=== PATIENT | male | born 1945 | race Caucasian/White ===

== ENCOUNTER 2021-08-08 10:35 | Inpatient (IN) | payer OTHER, MEDICARE, SELFPAY ==
[2021-08-08] VITALS (8 sets, daily range): BP systolic 124–155; BP diastolic 71–84; PULSE 63–81; RESP 19–29; TEMP 37.6; O2SAT 88–96; BMI 21.5
--- NOTE | 2021-08-08 11:04 | XR_ITS ---
WS: [id number] XR chest 1V portable [id number] REASON FOR EXAM: dyspnea FINDINGS: Mild tortuosity the thoracic aorta. Normal heart size. Confluent reticular opacities in the left lung base adjacent to the diaphragm. Diffuse reticular and groundglass opacities in the right lower lung field and the periphery of the ri ght midlung field. XR/XR chest 1V portable [id number] IMPRESSION: Bilateral pulmonary opacities unknown chronicity but very likely representing s ubacute pneumonitis.
--- NOTE | 2021-08-08 11:04 | ECG_ITS ---
[facility] Test Date: 2021-08-08 Pat Name: Conor Cullen Department: Room: Gender: Male Technical Buyer: : 1945 Requested By: Celestino Gomez Order Number: [id number] Nathan MD: Jennifer Soto M.D. Measurements Intervals [place] Rate: 68 P: 58 AK: 136 QRS: 66 QRSD: 94 T: 63 QT: 422 QTc: 450 Interpretive Statements SINUS RHYTHM No previous ECG available for comparison Electronically Signed On 08-08-2021 17:08:25 FABRIC SOURCER by Jennifer Soto M.D. [id number]
--- NOTE | 2021-08-08 11:11 | CT_ITS ---
WS: [id number] CTA OF THE CHEST WITH PULMONARY EMBOLISM PROTOCOL TECHNIQUE: High-resolution contrast enhanced CTA of the chest with coronal and sagittal reformatted i mages with pulmonary embolism protocol. MIP images are also reviewed. CLINICAL INFORMATION: dyspnea COMPARISON: None. DLP: 525.[address] scans at [facility] use at least one of these dose optimization techniques: automated e xposure control; mA and/or kV adjustment per patient size (includes targeted exams where dose is matc hed to clinical indication); or iterative reconstruction. FINDINGS: Proximal main pulmonary arteries are normal. Prominent main pulmonary arteries can be seen with pulmo nary arterial hypertension. Focal filling defect in the right lower lobe pulmonary arteries compatibl e with acute pulmonary embolus. Advanced chronic emphysematous changes. Chronic appearing interstitial thickening with subpleural fib rosis in the bilateral upper and lower lobes. Airspace infiltrates in both lower lobes. Recommend cor relation for pneumonia. Normal caliber thoracic aorta. Reactive anterior mediastinal and peribronchia l lymph nodes. Perihilar bronchovascular thickening. No axillary lymphadenopathy. Partially visualize d adrenal glands are normal. Normal GE junction. CT/CT angio chest PE protcl [id number] IMPRESSION: 1. Filling defect in the right lower lobe pulmonary arteries compatible with a cute pulmonary embolus. 2. Advanced chronic emphysematous changes with chronic appearing interstitial thickening and subpleural fibrosis 3. Superimposed airspace infiltrates in the mid lungs and bilateral lower lobe s compatible with pneumonia. Recommend correlation for COVID 19 pneumonia Notified Celestino Dailey DO at 08/08/2021 12:53 PM.
--- NOTE | 2021-08-08 11:13 | W.ED.COVID ---
HPI - COVID General: Chief Complaint: ER Hold Stated Complaint: O2 Below 90, having alot of respitory issues Time Seen by Provider: 08/08/21 10:53 Triage information: Has fever, cough or shortness of breath. History of Present Illness: 76-year-old male comes in complaining of cough and congestion for last 2 weeks. Unfortunately his yesterday at another facility secondary to Covid. He has had a low-grade fever he denies diarrhea or anosmia. He is not had a productive cough. He denies any chest pain. MD complaint: has COVID symptoms Prior covid testing: no COVID 19 common symptoms: positive fever(s), chills, cough, non-productive cough, dyspnea, body aches and headache(s); negative throat pain, nasal congestion, nausea, vomiting or diarrhea COVID 19 other sytmptoms: negative chest pain Onset (ago): week(s) (1-2) Severity: severe Treatment prior to arrival: none COVID Results: SARS-CoV-2 (PCR) Detected (NOT DETECT) A 08/08/21 11:01 08/08/21 Coronavirus Type 229E (PCR) Not detected (NOT DETECT) 08/08/21 11:01 08/08/21 Review of Systems Const: Reports: fever(s), chills and body aches ENMT: Denies: throat pain, ear or mastoid pain, nasal discharge or nasal congestion Card: Denies: chest pain, edema, dyspnea on exertion or orthopnea Resp: Reports: dyspnea and non-productive cough GI: Denies: abdominal pain, nausea, vomiting, hematemesis, coffee ground emesis, diarrhea, constipation, bloating, hematochezia or melena : Denies: flank pain, dysuria, urinary frequency or urinary urgency Skin/Breast: Denies: rash or pruritus Neuro: Reports: headache(s) PFSH ED PFSH: Medical History Former smoker Hypertension Surgical History 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 Family History Denies family history of CAD (coronary artery disease) Social History Smoking and tobacco status: former smoker Alcohol intake: never Substance/Drug Use: never Lives independently: Yes Marital status: / Marital status details: 08/07/2021 service: Yes Physical Exam Const: COMMON NORMALS: no acute distress GENERAL APPEARANCE: cooperative and comfortable ORIENTATION/CONSCIOUSNESS: Yes awake, Yes oriented to person, Yes oriented to place and Yes oriented to time HENMT: COMMON NORMALS: normocephalic, atraumatic and hearing grossly normal bilaterally HEAD & SCALP: normocephalic and atraumatic Neck/C-Spine: COMMON NORMALS: no JVD Resp: AUSCULTATION: crackles and wheezes Cardio: COMMON NORMALS: no JVD, regular rate, regular rhythm and No murmurs present (Cardio) RATE: regular rate RHYTHM: regular rhythm GI: COMMON NORMALS: Soft to palpation and No hepatosplenomegaly present AUSCULTATION: Yes normoactive bowel sounds PALPATION: Yes Soft to palpation, No Tenderness to palpation present (GI), No Guarding due to palpation present (GI) and Yes No hepatosplenomegaly present Extremity: COMMON NORMALS: normal to inspection, capillary refill normal, no clubbing, cyanosis or edema, no calf tenderness and no pedal edema Neuro: SENSORIUM/ORIENTATION: Yes oriented to person, Yes oriented to place and Yes oriented to time Skin: COMMON NORMALS: no rashes or lesions noted GENERAL SKIN EXAM: no rashes or lesions noted Course Vital Signs: Vital signs: Vital Signs Temperature 99.3 F 08/10/21 04:00 Pulse Rate 66 08/10/21 04:00 Respiratory Rate 20 H 08/10/21 04:00 Blood Pressure 168/84 08/10/21 04:00 Pulse Oximetry 90 08/10/21 04:00 MDM - COVID Medical Decision Making Patient tested positive for Covid is hypoxic and needs oxygen supplementation. Given his overall health recommend that he be hospitalized. He is rather late in the process and he does have a right lower lobe PE. Patient given Lovenox here discussed with hospitalist orders written Medical Records I reviewed the patient's medical records. Lab Data I reviewed the patient's lab results. : 08/10/21 04:50 08/09/21 05:43 Radiology Impressions Chest X-Ray 08/08/21 11:04 IMPRESSION: Bilateral pulmonary opacities unknown chronicity but very likely representing subacute pneumonitis. Chest CTA 08/08/21 11:11 IMPRESSION: 1. Filling defect in the right lower lobe pulmonary arteries compatible with acute pulmonary embolus. 2. Advanced chronic emphysematous changes with chronic appearing interstitial thickening and subpleural fibrosis 3. Superimposed airspace infiltrates in the mid lungs and bilateral lower lobes compatible with pneumonia. Recommend correlation for COVID 19 pneumonia Notified Celestino Dailey DO at 08/08/2021 12:53 PM. Foot X-Ray 08/08/21 15:33 IMPRESSION: 1. Negative for fracture or dislocation. 2. Small calcified plantar calcaneal heel spur. 3. Os trigonum, a normal variant. Laboratory Results WBC 13.4 10^3/uL (4.0-10.0) H 08/08/21 11:01 RBC 4.53 10^6/uL (4.1-5.3) 08/08/21 11:01 Hgb 14.0 g/dL (11.7-16.6) 08/08/21 11:01 Hct 42.0 % (42.0-52.0) 08/08/21 11:01 MCV 92.7 fl (80-94) 08/08/21 11:01 MCH 30.9 pg (28.0-34.0) 08/08/21 11:01 MCHC 33.3 g/dL (30.0-36.0) 08/08/21 11:01 RDW 13.2 % (12.1-15.1) 08/08/21 11:01 Plt Count 324 10^3/cmm (130-400) 08/08/21 11:01 MPV 9.7 fL (7.4-10.4) 08/08/21 11:01 Neut % (Auto) 87.3 % 08/08/21 11:01 Lymph % (Auto) 3.9 % 08/08/21 11:01 [place] % (Auto) 7.8 % 08/08/21 11:01 Eos % (Auto) 0.1 % 08/08/21 11:01 Baso % (Auto) 0.2 % 08/08/21 11:01 Neut # (Auto) 11.71 10^3/uL (1.8-7.7) H 08/08/21 11:01 Lymph # (Auto) 0.5 10^3/uL (0.8-4.8) L 08/08/21 11:01 [place] # (Auto) 1.0 10^3/uL (0.2-0.9) H 08/08/21 11:01 Eos # (Auto) 0.0 10^3/uL (0.0-0.8) 08/08/21 11:01 Baso # (Auto) 0.0 10^3/uL (0.0-0.1) 08/08/21 11:01 Nucleated RBC % (auto) 0 % 08/08/21 11:01 Nucleated RBCs # 0.0 /100WBC 08/08/21 11:01 PT 14.80 SECONDS (12.1-14.9) 08/08/21 11:01 INR 1.13 (0.8-1.2) 08/08/21 11:01 APTT 28.9 SECONDS (23.9-36.7) 08/08/21 11:01 Fibrinogen 517 mg/dL (174-498) H 08/08/21 11:01 D-Dimer 8.77 ug/mIFEU (0-0.59) H 08/08/21 11:01 Specimen Type Arterial 08/08/21 11:18 Sample Site Radial, right 08/08/21 11:18 ABG pH 7.50 (7.35-7.45) H 08/08/21 11:18 ABG pCO2 34.6 mmHg (35-45) L 08/08/21 11:18 ABG pO2 80.0 mmHg (80.0-100.0) 08/08/21 11:18 ABG HCO3 26.8 mmol/L (22-26) H 08/08/21 11:18 ABG O2 Saturation 96.6 08/08/21 11:18 ABG Base Excess 3.8 mmol/L (-2.0-2.0) H 08/08/21 11:18 Clint Test Pos 08/08/21 11:18 A-a O2 Gradient 24.6 mmHg (5-10) H 08/08/21 11:18 Hematocrit 40.8 % (42-52) L 08/08/21 11:18 Hgb O2 Saturation 95.0 % (95-100) 08/08/21 11:18 Carboxyhemoglobin 0.9 %THgb (0.4-20.1) 08/08/21 11:18 Methemoglobin 0.9 % (0.4-1.5) 08/08/21 11:18 Total Hemoglobin 13.3 g/dL (14-18) L 08/08/21 11:18 Sodium 139.0 mmol/L (131-143) 08/08/21 11:18 Potassium 3.4 mmol/L (3.5-5.0) L 08/08/21 11:18 Glucose 119.0 mg/dL (70-115) H 08/08/21 11:18 Ionized Calcium 1.1 mmol/L (1.1-1.4) 08/08/21 11:18 O2 Delivery Device Nc 08/08/21 11:18 O2 Liters/Min 6.0 % 08/08/21 11:18 FiO2 44.0 % 08/08/21 11:18 Resource Protection Specialist ID [email or web address] 08/08/21 11:18 Sodium 137 mmol/L (136-145) 08/08/21 11:01 Potassium 3.6 mmol/L (3.5-5.1) 08/08/21 11:01 Chloride 105 mmol/L (98-107) 08/08/21 11:01 Carbon Dioxide 21 mmol/L (22-29) L 08/08/21 11:01 Anion Gap 14.6 (5-19) 08/08/21 11:01 BUN 16 mg/dL (8-23) 08/08/21 11:01 Creatinine 0.7 mg/dL (0.7-1.2) 08/08/21 11:01 GFR Calculation Not Reportable 08/08/21 11:01 Glucose 136 mg/dL (65-115) H 08/08/21 11:01 Calculated Osmolality 287 mOsm/kg (285-295) 08/08/21 11:01 Lactic Acid 1.2 mmol/L (0.5-2.2) 08/08/21 11:50 Calcium 7.5 mg/dL (8.5-10.5) L 08/08/21 11:01 Ferritin 771 ng/mL (30-400) H 08/08/21 11:01 Total Bilirubin 0.6 mg/dL (0.15-1.2) 08/08/21 11:01 AST 30 U/L (0-40) 08/08/21 11:01 ALT 23 U/L (0-41) 08/08/21 11:01 Alkaline Phosphatase 95 IU/L (40-130) 08/08/21 11:01 Creatine Kinase 300 U/L (39-308) 08/08/21 11:01 Troponin T Gen 5 ng/L 57 ng/L (0-15) H 08/08/21 11:01 C-Reactive Protein 99.0 mg/L (0.0-4.9) H 08/08/21 11:01 NT-Pro-B Natriuret Pep 358 pg/mL (0-450) 08/08/21 11:01 Total Protein 6.1 g/dL (6.6-8.7) L 08/08/21 11:01 Albumin 2.5 g/dL (3.5-5.2) L 08/08/21 11:01 Globulin 3.6 g/dL (1.3-4.6) 08/08/21 11:01 Procalcitonin 0.08 ng/mL (0-0.5) 08/08/21 11:01 Coronavirus 229E (PCR) Not detected (NOT DETECT) 08/08/21 11:01 SARS-CoV-2 (PCR) Detected (NOT DETECT) A 08/08/21 11:01 SARS-CoV-2 (PCR) Detected (NOT DETECT) A 08/08/21 11:01 08/08/21 Coronavirus Type 229E (PCR) Not detected (NOT DETECT) 08/08/21 11:01 08/08/21 Discharge Plan Discharge Patient Disposition: Placed in Observation Admit Provider: Elizabeth Monae Clinical Impression: Pneumonia due to COVID-19 virus, Pulmonary embolism on right, Hypertension, Bereavement Coding Level of Care Code ED Hotel Clerk for Nicolasg Fwd Exam Comprehensive
[2021-08-08 11:16] LABS: Basophils % 0.2 %; Eosinophils % 0.1 %; Lymphocytes # 0.5 10^3/uL (0.8-4.8); Lymphocytes % 3.9 %; Mean Corpuscular HGB Conc 33.3 g/dL (30.0-36.0); Mean Corpuscular Hemoglobin 30.9 pg (28.0-34.0); Mean Corpuscular Volume 92.7 fl (80-94); Mean Platelet Volume 9.7 fL (7.4-10.4); Monocytes % 7.8 %; Neutrophils # 11.71 10^3/uL (1.8-7.7); Neutrophils % 87.3 %; Nucleated Red Blood Cells % 0 %; Platelet Count 324 10^3/cmm (130-400); Red Blood Count 4.53 10^6/uL (4.1-5.3); Red Cell Distribution Width 13.2 % (12.1-15.1); White Blood Count 13.4 10^3/uL (4.0-10.0)
[2021-08-08 11:29] LABS: ABG PCO2 34.6 mmHg (35-45); Alveolar-Arterial Oxygen Gradi 24.6 mmHg (5-10); Arterial Blood Gas Hematocrit 40.8 % (42-52); Base Excess ABG 3.8 mmol/L (-2.0-2.0); Blood Gas Allen Test Pos; Blood Gas Operator Identificat AMH; Blood Gas Sample Site Radial, right; Blood Gas Sample Type Arterial; Carboxyhemoglobin 0.9 %THgb (0.4-20.1); HCO3 ABG 26.8 mmol/L (22-26); Ionized Calcium Level - ABG 1.1 mmol/L (1.1-1.4); Methemoglobin 0.9 % (0.4-1.5); Oxygen Device NC; Oxygen Saturation ABG 96.6; Potassium Level - ABG 3.4 mmol/L (3.5-5.0); Total Hemoglobin 13.3 g/dL (14-18)
[2021-08-08] MEDS: dexamethasone 10 mg/mL INJ 6 MG IVP (11:36)
[2021-08-08 11:51] LABS: Alanine Aminotransferase 23 U/L (0-41); Albumin Level 2.5 g/dL (3.5-5.2); Alkaline Phosphatase 95 IU/L (40-130); Aspartate Amino Transferase 30 U/L (0-40); Blood Urea Nitrogen 16 mg/dL (8-23); Calcium 7.5 mg/dL (8.5-10.5); Carbon Dioxide 21 mmol/L (22-29); Chloride 105 mmol/L (98-107); Globulin 3.6 g/dL (1.3-4.6); Glucose 136 mg/dL (65-115); Osmolality Calculated 287 mOsm/kg (285-295); Sodium 137 mmol/L (136-145); Total Bilirubin 0.6 mg/dL (0.15-1.2); Total Protein 6.1 g/dL (6.6-8.7)
[2021-08-08 11:55] LABS: Anion Gap 14.6 (5-19); Potassium 3.6 mmol/L (3.5-5.1)
[2021-08-08 11:56] LABS: Procalcitonin 0.08 ng/mL (0-0.5)
[2021-08-08 12:08] LABS: D Dimer 8.77 ug/mIFEU (0-0.59)
[2021-08-08 12:25] LABS: Lactic Sepsis W/Reflex 1.2 mmol/L (0.5-2.2)
--- NOTE | 2021-08-08 12:38 | P.HP_ITS ---
Providers/Chief Complaint Admitting Physician: Elizabeth Monae Primary Care Provider: [facility] Chief Complaint: O2 Below 90, having alot of respitory issues History of Present Illness Conor Cullen is a 76 year old male who presented to the emergency room at his daughter's urging due to increasing difficulty breathing and general malaise. He tested positive for COVID-19 around July 27. Symptom onset was shortly before that. His has also been sick and she unfortunately within the last 24 to 48 hours, presumably from Covid. He is not vaccinated. He has not previously had Covid. He has had headache which was one of his initial symptoms along with sore throat, very dry mouth, runny nose, congestion, difficulty breathing that has been progressively worsening. Has not really been able to get up much sputum, no blood has been noted. Denies any GI symptoms. He has some right foot pain from an encounter with a woodpile a few days ago but denies any other body aches currently. He has been weaker than usual. Intermittently he notices loss of taste more so than smell. On arrival here oxygen saturations were 84% on room air. He was placed on oxygen that was titrated up to 6 L with saturations around 93-94%. Rapid Covid PCR has been sent. We do not have access to prior testing records as it was a home test. Chest x-ray showed bilateral pneumonitis consistent with Covid 19. Lymphopenia has been noted. CTA of the chest showed evidence of right lower lobe PE. He has been given dexamethasone, Lovenox and started on remdesivir. He is being admitted for further evaluation and treatment. Primary risk factors for severe Covid include hypertension and a history of smoking. He reports to me that he quit smoking many years ago although family indicates that he still smokes sometimes. Exact amounts or not known. He has not received any other outpatient focus treatment for Covid. Review of Systems Const: Reports: fever(s), chills, fatigue and malaise; Denies: body aches Eyes: Denies: blurry vision or eye discomfort ENMT: Reports: throat pain, nasal congestion and other (intermittent loss of taste and smell) Card: Reports: dyspnea on exertion; Denies: chest pain, palpitations, edema, lightheadedness, syncope, orthopnea or acrocyanosis Resp: Reports: dyspnea, productive cough, non-productive cough and chest congestion; Denies: wheezing, pain on inspiration or hemoptysis GI: Denies: abdominal pain, nausea, vomiting, diarrhea, constipation or hematochezia : Denies: difficulty urinating Musc: Reports: extremity pain (right foot pain at instep, wood fell on foot or stepped on wood pile wrong) and muscle weakness; Denies: neck pain or back pain Skin/Breast: Denies: rash, pruritus or sores Neuro: Reports: headache(s) and weakness in extremities (general rather than focal); Denies: numbness in extremities Psych: Reports: other (reports okay when asked about how handling 's ); Denies: anxiety Misha/Lymph: Denies: easy bruising or easy bleeding Medications/Allergies Home Medications Medication Instructions Recorded Confirmed Last Taken Type amlodipine 10 mg tablet 10 mg PO DAILY 08/08/21 08/08/21 08/07/21 History aspirin 81 mg chewable tablet 81 mg PO DAILY 08/08/21 08/08/21 08/07/21 History Allergies Allergy/AdvReac Type Severity Reaction Status Date / Time No Known Allergies Allergy Unverified 08/08/21 14:09 PFSH Acute PFSH: Medical History (Updated 08/08/21 @ 15:30 by Elizabeth Monae MD) Former smoker Hypertension Surgical History (Updated 08/08/21 @ 14:56 by Elizabeth Monae MD) 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 Family History (Updated 08/08/21 @ 14:56 by Elizabeth Monae MD) Denies family history of CAD (coronary artery disease) Social History (Updated 08/08/21 @ 14:57 by Elizabeth Monae MD) Smoking and tobacco status: former smoker Alcohol intake: never Substance/Drug Use: never Lives independently: Yes Marital status: / Marital status details: 08/07/2021 service: Yes Other PFSH information: Patient reports that he quit smoking sometime ago; family reports that he still smokes sometimes Vitals/I&O/Wt Last Vital Signs Temp 99.7 F H 08/08/21 10:54 Pulse 68 08/08/21 12:19 Resp 21 H 08/08/21 12:19 BP 129/74 08/08/21 12:19 Pulse Ox 94 on 6L 08/08/21 12:19 Weight last 48 hrs Weight 68.039 kg Physical Exam Narrative: EXAM NARRATIVE: Constitutional: alert, ill appearing, cooperative, able to provide history HEENT: normocephalic, conjunctiva injected, clear rhinorrhea, very dry oral mucosa with dried phlegm noted, mild erythema Neck: supple Respiratory: scattered wheezes, no crackles, tachypnea which is more marked with position changes, has to pause to take a few breaths periodically durinf conversation Cardiovascular: regular rhythm, no murmurs, no acrocyanosis Abdomen: soft, non tender, positive bowel sounds Extremities: no pitting edema, no cyanosis, pain with palpation of right mid foot medially most pronounced on the sole of the arch, bruising and scabbed small sores over much of the 1st digit, able to move toes right foot without same degree of pain, small nodular soft tissue area at achilles on right which is non tender nor warm, but noticeably different from left, tenderness is noted ~ 3 cm proximal to this nodular area extending to mid calf, no definitive palpable cords Skin: quite dry, no rashes or bruising noted, hyperpigmented lesion to left ear lobe and nodular shiny red papule left side of posterior neck measuring about 1 cm diameter Neuro: face symmetric, extraocular movements intact, speech clear, moves all extremities, generally weak Psych: normal affect, appropriate response when asked about his , able to talk about her a bit Data : 08/08/21 11:01 08/08/21 11:01 Other Labs: Radiology Impressions Chest X-Ray 08/08/21 11:04 IMPRESSION: Bilateral pulmonary opacities unknown chronicity but very likely representing subacute pneumonitis. Chest CTA 08/08/21 11:11 IMPRESSION: 1. Filling defect in the right lower lobe pulmonary arteries compatible with acute pulmonary embolus. 2. Advanced chronic emphysematous changes with chronic appearing interstitial thickening and subpleural fibrosis 3. Superimposed airspace infiltrates in the mid lungs and bilateral lower lobes compatible with pneumonia. Recommend correlation for COVID 19 pneumonia Laboratory Results WBC 13.4 10^3/uL (4.0-10.0) H 08/08/21 11:01 RBC 4.53 10^6/uL (4.1-5.3) 08/08/21 11:01 Hgb 14.0 g/dL (11.7-16.6) 08/08/21 11:01 Hct 42.0 % (42.0-52.0) 08/08/21 11:01 MCV 92.7 fl (80-94) 08/08/21 11:01 MCH 30.9 pg (28.0-34.0) 08/08/21 11:01 MCHC 33.3 g/dL (30.0-36.0) 08/08/21 11:01 RDW 13.2 % (12.1-15.1) 08/08/21 11:01 Plt Count 324 10^3/cmm (130-400) 08/08/21 11:01 MPV 9.7 fL (7.4-10.4) 08/08/21 11:01 Neut % (Auto) 87.3 % 08/08/21 11:01 Lymph % (Auto) 3.9 % 08/08/21 11:01 [place] % (Auto) 7.8 % 08/08/21 11:01 Eos % (Auto) 0.1 % 08/08/21 11:01 Baso % (Auto) 0.2 % 08/08/21 11:01 Neut # (Auto) 11.71 10^3/uL (1.8-7.7) H 08/08/21 11:01 Lymph # (Auto) 0.5 10^3/uL (0.8-4.8) L 08/08/21 11:01 [place] # (Auto) 1.0 10^3/uL (0.2-0.9) H 08/08/21 11:01 Eos # (Auto) 0.0 10^3/uL (0.0-0.8) 08/08/21 11:01 Baso # (Auto) 0.0 10^3/uL (0.0-0.1) 08/08/21 11:01 Nucleated RBC % (auto) 0 % 08/08/21 11:01 Nucleated RBCs # 0.0 /100WBC 08/08/21 11:01 D-Dimer 8.77 ug/mIFEU (0-0.59) H 08/08/21 11:01 Specimen Type Arterial 08/08/21 11:18 Sample Site Radial, right 08/08/21 11:18 ABG pH 7.50 (7.35-7.45) H 08/08/21 11:18 ABG pCO2 34.6 mmHg (35-45) L 08/08/21 11:18 ABG pO2 80.0 mmHg (80.0-100.0) 08/08/21 11:18 ABG HCO3 26.8 mmol/L (22-26) H 08/08/21 11:18 ABG O2 Saturation 96.6 08/08/21 11:18 ABG Base Excess 3.8 mmol/L (-2.0-2.0) H 08/08/21 11:18 Clint Test Pos 08/08/21 11:18 A-a O2 Gradient 24.6 mmHg (5-10) H 08/08/21 11:18 Hematocrit 40.8 % (42-52) L 08/08/21 11:18 Hgb O2 Saturation 95.0 % (95-100) 08/08/21 11:18 Carboxyhemoglobin 0.9 %THgb (0.4-20.1) 08/08/21 11:18 Methemoglobin 0.9 % (0.4-1.5) 08/08/21 11:18 Total Hemoglobin 13.3 g/dL (14-18) L 08/08/21 11:18 Sodium 139.0 mmol/L (131-143) 08/08/21 11:18 Potassium 3.4 mmol/L (3.5-5.0) L 08/08/21 11:18 Glucose 119.0 mg/dL (70-115) H 08/08/21 11:18 Ionized Calcium 1.1 mmol/L (1.1-1.4) 08/08/21 11:18 O2 Delivery Device Nc 08/08/21 11:18 O2 Liters/Min 6.0 % 08/08/21 11:18 FiO2 44.0 % 08/08/21 11:18 Meat Pickler ID [email or web address] 08/08/21 11:18 Sodium 137 mmol/L (136-145) 08/08/21 11:01 Potassium 3.6 mmol/L (3.5-5.1) 08/08/21 11:01 Chloride 105 mmol/L (98-107) 08/08/21 11:01 Carbon Dioxide 21 mmol/L (22-29) L 08/08/21 11:01 Anion Gap 14.6 (5-19) 08/08/21 11:01 BUN 16 mg/dL (8-23) 08/08/21 11:01 Creatinine 0.7 mg/dL (0.7-1.2) 08/08/21 11:01 GFR Calculation Not Reportable 08/08/21 11:01 Glucose 136 mg/dL (65-115) H 08/08/21 11:01 Calculated Osmolality 287 mOsm/kg (285-295) 08/08/21 11:01 Lactic Acid 1.2 mmol/L (0.5-2.2) 08/08/21 11:50 Calcium 7.5 mg/dL (8.5-10.5) L 08/08/21 11:01 Total Bilirubin 0.6 mg/dL (0.15-1.2) 08/08/21 11:01 AST 30 U/L (0-40) 08/08/21 11:01 ALT 23 U/L (0-41) 08/08/21 11:01 Alkaline Phosphatase 95 IU/L (40-130) 08/08/21 11:01 C-Reactive Protein 99.0 mg/L (0.0-4.9) H 08/08/21 11:01 Total Protein 6.1 g/dL (6.6-8.7) L 08/08/21 11:01 Albumin 2.5 g/dL (3.5-5.2) L 08/08/21 11:01 Globulin 3.6 g/dL (1.3-4.6) 08/08/21 11:01 Procalcitonin 0.08 ng/mL (0-0.5) 08/08/21 11:01 A&P Assessment and plan (1) Pneumonia due to COVID-19 virus: Status: Acute (2) Pulmonary embolism on right: Status: Acute (3) COVID-19 vaccination not done: Status: Acute (4) Right foot pain: Status: Acute (5) Hypertension: Status: Chronic Qualifiers: Hypertension type: primary hypertension Qualified Code(s): I10 - Essential (primary) hypertension (6) Bereavement: day or 2 prior to admission at home, likely from Covid Status: Acute Plan Inpatient admission Supplemental oxygen and pulmonary toilet as needed to maintain oxygen saturations Respiratory therapy to follow Full anticoagulation with lovenox, consider transition to direct oral anticoagulation when appropriate Dexamethasone started 08/08/21 Remdesivir started 08/08/21 D dimer 8.7 CTA with right lower lobe filling defect consistent with acute PE as well as chronic emphysematous and fibrotic changes CRP 99 Procalcitonin 0.08 Blood cultures ordered Sputum culture ordered Check other baseline inflammatory markers and labs Vitamin C, D, zinc X-ray right foot ordered to evaluate for fracture or foreign body given degree of pain Provide support for bereavement as at another facility from COVID prior to his admission Supportive care otherwise Findings, concerns and plans discussed with patient/family, all given an opportunity to ask questions. Patient's daughters whom I spoke to indicated that it was their stepmother who . Currently anticipate discharge home, possibly with oxygen therapy, however it will ultimately depend on clinical course FULL CODE -- expressed that he was okay with short term or temporary intubation if needed, asked to defer to his children regarding chest compressions and other cardiac resuscitation Attestations Medical Necessity Statement*: Anticipate stay greater than 2 midnights in patient with covid, requiring oxygen and other care as noted above. At high risk of rapid clinical decline for reasons noted above. Coding Level of Care Code Acute Full Stack Java Developer for Chg Fwd Diagnoses Pneumonia due to COVID-19 virus U07.1; J12.82 COVID-19 vaccination not done Z28.9 Pulmonary embolism on right I26.99 Hypertension I10 Hypertension type: primary hypertension Right foot pain M79.671 Bereavement Z63.4
[2021-08-08] MEDS: iohexol 300 mg/mL 100 mL Btl IV (12:40)
[2021-08-08] MEDS: remdesivir 200 MG in sodium chloride 0.9% (100 ml) 60 ML 100 MG IV (13:21)
[2021-08-08 13:34] LABS: Troponin T (5th) Once 57 ng/L (0-15)
[2021-08-08 13:37] LABS: INR 1.13 (0.8-1.2)
[2021-08-08 13:38] LABS: Partial Thromboplastin Time 28.9 SECONDS (23.9-36.7)
[2021-08-08 13:39] LABS: Fibrinogen 517 mg/dL (174-498)
[2021-08-08 13:50] LABS: Creatine Phosphokinase 300 U/L (39-308); Ferritin 771 ng/mL (30-400); NT Pro B Type Natriuretic Pept 358 pg/mL (0-450)
[2021-08-08] MEDS: enoxaparin 80 mg/0.8 mL Syringe 70 MG SUBCUT (14:42)
[2021-08-08 14:48] LABS: Adenovirus Not Detected (NOT DETECT); Chlamydia Pneumoniae Not Detected (NOT DETECT); Coronavirus 229E,HKU1,NL63,OC4 Not Detected (NOT DETECT); Human Metapneumovirus Not Detected (NOT DETECT); Human Rhinovirus/Enterovirus Not Detected (NOT DETECT); Influenza A Not Detected (NOT DETECT); Influenza A H1 Not Detected (NOT DETECT); Influenza A H1-2009 Not Detected (NOT DETECT); Influenza A H3 Not Detected (NOT DETECT); Influenza B Not Detected (NOT DETECT); Mycoplasma Pneumoniae Not Detected (NOT DETECT); Parainfluenza Virus Type 1 Not Detected (NOT DETECT); Parainfluenza Virus Type 2 Not Detected (NOT DETECT); Parainfluenza Virus Type 3 Not Detected (NOT DETECT); Parainfluenza Virus Type 4 Not Detected (NOT DETECT); Respiratory Syncytial Virus A Not Detected (NOT DETECT); Respiratory Syncytial Virus B Not Detected (NOT DETECT); SARS-COV-2 Detected (NOT DETECT)
--- NOTE | 2021-08-08 14:51 | PC.NURSE ---
PATIENT PROVIDED WATER AND WARM BLANKETS. PATIENT RESTING IN BED.
--- NOTE | 2021-08-08 15:33 | XRR_ITS ---
PROCEDURE INFORMATION: Exam: XR Right Foot Exam date and time: 08/08/2021 3:33 PM Age: 76 years old Clinical indication: Injury or trauma; Other: Firewood fell on foot; Blunt trauma; Right; Injury details: Fire wood fell on RT foot. Redness and abrasions to anterior surface of foot. ; Additional info: Pain, bruising along 1st digit, most promenent at arch, wood fell on foot or he tripped over wood TECHNIQUE: Imaging protocol: XR Right foot. Views: 1 or 2 views. COMPARISON: No relevant prior studies available. FINDINGS: Bones/joints: Small calcified plantar calcaneal heel spur. Os trigonum, a normal variant. Soft tissues: Normal. XR/XR foot RT 2V [id number] IMPRESSION: 1. Negative for fracture or dislocation. 2. Small calcified plantar calcaneal heel spur. 3. Os trigonum, a normal variant.
[2021-08-08] MEDS: ascorbic acid 500 mg Tablet 1000 MG PO (18:12)
[2021-08-09] VITALS (7 sets, daily range): BP systolic 130–161; BP diastolic 62–81; PULSE 65–89; RESP 17–21; TEMP 36.7–37.4; O2SAT 88–92
[2021-08-09] MEDS: enoxaparin 80 mg/0.8 mL Syringe 70 MG SUBCUT ×2 (05:57→17:01)
[2021-08-09 06:52] LABS: Alanine Aminotransferase 18 U/L (0-41); Albumin Level 2.4 g/dL (3.5-5.2); Alkaline Phosphatase 82 IU/L (40-130); Anion Gap 14.1 (5-19); Aspartate Amino Transferase 19 U/L (0-40); Blood Urea Nitrogen 20 mg/dL (8-23); Calcium 7.6 mg/dL (8.5-10.5); Carbon Dioxide 25 mmol/L (22-29); Chloride 105 mmol/L (98-107); Globulin 2.8 g/dL (1.3-4.6); Glucose 115 mg/dL (65-115); Magnesium 2.4 mg/dL (1.7-2.3); Osmolality Calculated 294 mOsm/kg (285-295); Phosphorus 3.2 mg/dL (2.5-4.5); Potassium 4.1 mmol/L (3.5-5.1); Sodium 140 mmol/L (136-145); Total Bilirubin 0.2 mg/dL (0.15-1.2); Total Protein 5.2 g/dL (6.6-8.7)
[2021-08-09 07:56] LABS: Basophils % 0.2 %; Hematocrit 39.1 % (42.0-52.0); Lymphocytes # 0.8 10^3/uL (0.8-4.8); Lymphocytes % 6.1 %; Mean Corpuscular HGB Conc 33.2 g/dL (30.0-36.0); Mean Corpuscular Hemoglobin 31.5 pg (28.0-34.0); Mean Corpuscular Volume 94.7 fl (80-94); Mean Platelet Volume 10.1 fL (7.4-10.4); Monocytes % 8.3 %; Neutrophils # 10.57 10^3/uL (1.8-7.7); Neutrophils % 84.5 %; Nucleated Red Blood Cells % 0 %; Platelet Count 331 10^3/cmm (130-400); Red Blood Count 4.13 10^6/uL (4.1-5.3); Red Cell Distribution Width 13.5 % (12.1-15.1); White Blood Count 12.5 10^3/uL (4.0-10.0)
[2021-08-09] MEDS: cholecalciferol (vitamin D3) 1,000 unit Tablet 2000 UNIT PO (08:47)
[2021-08-09] MEDS: aspirin 81 mg Chew Tablet PO (08:47)
[2021-08-09] MEDS: ascorbic acid 500 mg Tablet 1000 MG PO ×2 (08:47→17:01)
[2021-08-09] MEDS: zinc gluconate 50 mg Tablet PO (08:47)
[2021-08-09] MEDS: amlodipine 10 mg Tablet PO (08:47)
[2021-08-09] MEDS: pantoprazole DR 40 mg Tablet PO (08:49)
--- NOTE | 2021-08-09 10:30 | P.PN_ITS ---
Subjective Subjective: Interval history: Test positive July 27, wants me to update his daughter No overnight events Currently on 5 L nasal cannula No active shortness of breath no conversational dyspnea No active chest pain Vitals/I&O/Wt Last Vital Signs Temp 98.3 F 08/09/21 08:00 Pulse 89 08/09/21 09:53 Resp 18 08/09/21 09:53 BP 147/79 08/09/21 08:00 Pulse Ox 92 08/09/21 09:53 Weight last 48 hrs Weight 68.039 kg Weight 68.039 kg Physical Exam Narrative: EXAM NARRATIVE: Patient sitting comfortably in his bed waiting for his breakfast No audible stridor or wheezing Bilateral breath sounds without conversational dyspnea or use of respiratory sensory muscles Awake and alert Muscle mass loss Nonfocal neuro exam EOMI, PERRLA Abdomen soft No signs of edema Data : 08/09/21 05:43 08/09/21 05:43 Micro: Microbiology 08/08/21 15:47 Blood Culture - Preliminary Blood SPECIMEN COLLECTED 08/08/21 15:40 Blood Culture - Preliminary Blood SPECIMEN COLLECTED A&P Assessment and plan (1) Right foot pain: Status: Acute (2) Hypertension: Status: Chronic Qualifiers: Hypertension type: primary hypertension Qualified Code(s): I10 - Essential (primary) hypertension (3) Pulmonary embolism on right: Status: Acute (4) COVID-19 vaccination not done: Status: Acute (5) Pneumonia due to COVID-19 virus: Status: Acute Plan COVID-19 related hypoxia Currently on 5 L nasal cannula Acute PE Full dose anticoagulation, remdesivir and Decadron for now Inflammatory markers every 48 hours X-ray of foot consistent with bony spur I would like to watch him until Saturday to see if I am able to discharge him home We will update his daughter Patient is full code Continue multivitamins Lovenox 70 mg every 12 hours Will obtain venous Doppler, echo Attestations Medical Necessity Statement*: Continue medical management Time Spent in Patient Care: 15mins Coding Level of Care Code 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
--- NOTE | 2021-08-09 10:33 | USCV_ITS ---
Conor Cullen Age: 76 Gender: M : 1945 Exam Date: 08/09/2021 11:17 Ordering Phys: Kacey Flood MD Technologist: SHAUNA Exam Location: [facility] – [place] Indication: COVID ISOLATION. SOB. Pulmonary embolus. Eval for right heart strain. BP: 147 / 79 HR: 64 Rhythm: Sinus Technical Quality: Adequate MEASUREMENTS (Male / Female) Normal Values 2D ECHO LV Diastolic Diameter PLAX 3.1 cm 4.2 - 5.9 / 3.9 - 5.3 cm LV Systolic Diameter PLAX 1.9 cm IVS Diastolic Thickness 1.3 cm 0.6 - 1.0 / 0.6 - 0.9 cm IVS Systolic Thickness 1.8 cm LVPW Diastolic Thickness 1.4 cm 0.6 - 1.0 / 0.6 - 0.9 cm LVPW Systolic Thickness 1.8 cm LVOT Diameter 1.9 cm LV Ejection Fraction 2D Teich 70.2 % LV Ejection Fraction MOD 2C 64.8 % LV Ejection Fraction 2C AL 65.1 % LA Diameter 4.2 cm LA Width 3.8 cm LA Height 6.8 cm RA Width 4.3 cm RA Height 3.8 cm Aorta at Sinotubular Diameter 3.0 cm M-MODE Aortic Annulus Diameter 3.4 cm LA Ao Ratio MM 1.1 MV E Point Septal Separation 0.3 cm DOPPLER AV Peak Velocity 108.0 cm/s LVOT Peak Velocity 91.0 cm/s AV Area Cont Eq vti 2.1 cm squared AV Area Cont Eq pk 2.4 cm squared MV Area PHT 3.5 cm squared Mitral E to A Ratio 1.1 MV E' Velocity 44.0 cm/s Mitral E to MV E' Ratio 8.5 Mitral E to LV E' Lateral Ratio 9.8 Mitral E to LV E' Septal Ratio 7.7 TR Peak Velocity 248.0 cm/s TR Peak Gradient 24.6 mmHg TV Peak E Velocity 42.0 cm/s Right Atrial Pressure 5.0 mmHg Pulmonary Artery Systolic Pressu 29.6 mmHg PV Peak Velocity 95.0 cm/s RV Acceleration Time 0.1 s RV Ejection Time 0.4 s RV AcT/ET 0.4 FINDINGS Left Ventricle Normal left ventricular size, systolic function and wall thickness, with no regional wall motion abnormalities. Left ventricular ejection fraction is estimated at 60 %. Normal diastolic function. Right Ventricle Normal right ventricular size and systolic function. Right ventricular systolic pressure 28 mmHg. Right Atrium Normal right atrial size. Right atrial pressure estimated at 3 mm Hg. Left Atrium Normal left atrial size. Mitral Valve Mildly thickened mitral valve. No mitral valve stenosis. Trace mitral valve regurgitation. Aortic Valve Structurally normal trileaflet aortic valve. No aortic valve stenosis. No aortic valve regurgitation. Tricuspid Valve Structurally normal tricuspid valve. Mild tricuspid valve regurgitation. Pulmonic Valve Pulmonic valve not well visualized. No pulmonary valve stenosis. No pulmonary valve regurgitation. Pericardium No pericardial effusion. Aorta Normal-sized inferior vena cava with greater than 50% respiratory variation. CONCLUSIONS 1. Normal left ventricular size, systolic function and wall thickness, with no regional wall motion abnormalities. Left ventricular ejection fraction is estimated at 60 %. Normal diastolic function. 2. Normal right ventricular size and systolic function. 3. Pulmonary artery pressure estimated at 28 mmHg. 4. Mild tricuspid valve regurgitation. 5. No prior similar studies to compare. Jennifer Soto MD (Electronically Signed) Final Date: 09 August 2021 13:21 S
--- NOTE | 2021-08-09 10:33 | USCV_ITS ---
Conor Cullen Age: 76 Gender: M : 1945 Exam Date: 08/09/2021 12:06 Ordering Phys: Kacey Flood MD Technologist: SHAUNA Exam Location: [facility] – [place] Indication: COVID ISOLATION. SOB. Pulmonary embolus. No hx DVT per patient. No LE edema. No LE erythema. No LE pain. HISTORY: COVID ISOLATION. SOB. Pulmonary embolus. No hx DVT per patient. No LE edema. No LE erythema. No LE pain. PROCEDURES: The venous duplex Doppler examination of both lower extremities was performed in the standard fashion. The following venous structures were evaluated: common femoral vein, profunda vein, proximal portion of the greater saphenous vein, superficial femoral vein, and the popliteal vein. FINDINGS: Normal 2-D Doppler and augmentation and compressibility throughout the lower extremity venous structures. Additional imaging through the proximal calf veins also reveals no thrombus. Limited evaluation of the greater saphenous vein is patent with no thrombus.. CONCLUSIONS No DVT bilateral lower extremities. Dr. Whitney Bucio DO (Electronically Signed) Final Date: 09 August 2021 15:49 S
[2021-08-09] MEDS: dexamethasone 4 mg/mL INJ 6 MG IVP (17:00)
[2021-08-09] MEDS: remdesivir 100 MG in sodium chloride 0.9% (100 ml) 100 ML IV (17:01)
[2021-08-10] VITALS (12 sets, daily range): BP systolic 121–168; BP diastolic 75–89; PULSE 66–91; RESP 16–24; TEMP 36.8–37.5; O2SAT 80–96
[2021-08-10 04:23] LABS: ABG PCO2 35.9 mmHg (35-45); ABG PH Result 7.48 (7.35-7.45); Arterial Blood Gas Hematocrit 40.9 % (42-52); Base Excess ABG 3.1 mmol/L (-2.0-2.0); Blood Gas Allen Test Pos; Blood Gas Sample Site Brachial, right; Blood Gas Sample Type Arterial; HCO3 ABG 26.5 mmol/L (22-26); Oxygen Device NC; PO2 ABG 56.5 mmHg (80.0-100.0)
[2021-08-10 05:48] LABS: Basophils % 0.1 %; Hemoglobin 12.7 g/dL (11.7-16.6); Lymphocytes # 0.7 10^3/uL (0.8-4.8); Lymphocytes % 4.4 %; Mean Corpuscular HGB Conc 32.6 g/dL (30.0-36.0); Mean Corpuscular Hemoglobin 31.2 pg (28.0-34.0); Mean Corpuscular Volume 95.8 fl (80-94); Mean Platelet Volume 10.5 fL (7.4-10.4); Monocytes % 6.6 %; Neutrophils # 13.69 10^3/uL (1.8-7.7); Nucleated Red Blood Cells % 0 %; Platelet Count 340 10^3/cmm (130-400); Red Blood Count 4.07 10^6/uL (4.1-5.3); Red Cell Distribution Width 13.5 % (12.1-15.1); White Blood Count 15.6 10^3/uL (4.0-10.0)
[2021-08-10] MEDS: enoxaparin 80 mg/0.8 mL Syringe 70 MG SUBCUT ×2 (06:03→16:37)
[2021-08-10 06:12] LABS: Anion Gap 16.1 (5-19); Blood Urea Nitrogen 21 mg/dL (8-23); Calcium 8.5 mg/dL (8.5-10.5); Carbon Dioxide 21 mmol/L (22-29); Chloride 105 mmol/L (98-107); Glucose 129 mg/dL (65-115); Osmolality Calculated 291 mOsm/kg (285-295); Potassium 4.1 mmol/L (3.5-5.1); Sodium 138 mmol/L (136-145)
[2021-08-10 06:17] LABS: Procalcitonin 0.07 ng/mL (0-0.5)
[2021-08-10] MEDS: amlodipine 10 mg Tablet PO (08:09)
[2021-08-10] MEDS: pantoprazole DR 40 mg Tablet PO (08:09)
[2021-08-10] MEDS: aspirin 81 mg Chew Tablet PO (08:09)
[2021-08-10] MEDS: cholecalciferol (vitamin D3) 1,000 unit Tablet 2000 UNIT PO (08:09)
[2021-08-10] MEDS: ascorbic acid 500 mg Tablet 1000 MG PO ×3 (08:09→16:37)
[2021-08-10] MEDS: zinc gluconate 50 mg Tablet PO (08:10)
--- NOTE | 2021-08-10 11:31 | P.PN_ITS ---
Subjective Subjective: Interval history: No fever, leukocytosis trending up, currently on Decadron and Lovenox every 12 for PE and COVID-19 pneumonia Saturating well, eating well had a bowel movement, no urinary complaints In good spirits Vitals/I&O/Wt Last Vital Signs Temp 98.4 F 08/10/21 07:55 Pulse 89 08/10/21 09:53 Resp 20 H 08/10/21 09:53 BP 158/83 08/10/21 07:55 Pulse Ox 82 L 08/10/21 09:53 08/09/21 08/10/21 08/10/21 22:59 06:59 14:59 Intake Total 100 / 340 420 / 760 240 / 240 Balance 100 / 340 420 / 760 240 / 240 Weight last 48 hrs Weight 68.039 kg Physical Exam Narrative: EXAM NARRATIVE: Patient was eating breakfast when I entered the room In good spirits Nonfocal neuro exam S1, S2 Bilateral breath sounds today I have not noticed rhonchi crackles or stridor Abdomen is soft Nonfocal neuro exam No signs of edema He was saturating well on room air, when asked about his nasal cannula he said he would like to take his oxygen off for eating breakfast, his O2 saturation was low Data : 08/10/21 04:50 08/10/21 04:50 Micro: Microbiology 08/08/21 15:47 Blood Culture - Preliminary Blood NEGATIVE TO DATE 08/08/21 15:40 Blood Culture - Preliminary Blood NEGATIVE TO DATE A&P Assessment and plan (1) Right foot pain: Status: Acute (2) Hypertension: Status: Chronic (3) Pulmonary embolism on right: Status: Acute (4) COVID-19 vaccination not done: Status: Acute (5) Pneumonia due to COVID-19 virus: Status: Acute Plan Acute on chronic hypoxia related to COVID-19 Plan to discharge him tomorrow if clinically stable Leukocytosis noted Afebrile PO2 56 on 3 L, he might need 45 L at the time of discharge, home O2 eval tomorrow We will discharge him on Eliquis for his acute PE No signs of fracture on foot x-ray Venous Doppler negative for DVT Attestations Medical Necessity Statement*: Discharge tomorrow Coding Level of Care Code 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
--- NOTE | 2021-08-10 11:35 | PC.NURSE ---
I reported the low 02 level to the nurse. 80%. patient standing at the sink with out the 02 on
[2021-08-10] MEDS: dexamethasone 4 mg/mL INJ 6 MG IVP (12:19)
[2021-08-10] MEDS: lisinopril 10 mg Tablet PO (12:19)
[2021-08-10] MEDS: ipratropium-albuterol 3 mL Neb INHALATION ×3 (14:57→21:15)
[2021-08-10] MEDS: remdesivir 100 MG in sodium chloride 0.9% (100 ml) 100 ML IV (16:37)
[2021-08-11] VITALS (8 sets, daily range): BP systolic 125–149; BP diastolic 72–84; PULSE 64–91; RESP 18–20; TEMP 36.7–37.9; O2SAT 80–93
[2021-08-11 05:49] LABS: Basophils % 0.1 %; Hematocrit 38.3 % (42.0-52.0); Hemoglobin 12.7 g/dL (11.7-16.6); Lymphocytes # 0.7 10^3/uL (0.8-4.8); Lymphocytes % 4.3 %; Mean Corpuscular HGB Conc 33.2 g/dL (30.0-36.0); Mean Corpuscular Hemoglobin 31.1 pg (28.0-34.0); Mean Corpuscular Volume 93.9 fl (80-94); Mean Platelet Volume 9.9 fL (7.4-10.4); Monocytes # 1.3 10^3/uL (0.2-0.9); Monocytes % 8.2 %; Neutrophils # 13.81 10^3/uL (1.8-7.7); Nucleated Red Blood Cells % 0 %; Platelet Count 409 10^3/cmm (130-400); Red Blood Count 4.08 10^6/uL (4.1-5.3); Red Cell Distribution Width 13.4 % (12.1-15.1)
[2021-08-11 06:05] LABS: Anion Gap 16.3 (5-19); Blood Urea Nitrogen 22 mg/dL (8-23); Calcium 8.6 mg/dL (8.5-10.5); Carbon Dioxide 21 mmol/L (22-29); Chloride 104 mmol/L (98-107); Glucose 99 mg/dL (65-115); Osmolality Calculated 287 mOsm/kg (285-295); Potassium 4.3 mmol/L (3.5-5.1); Sodium 137 mmol/L (136-145)
[2021-08-11] MEDS: enoxaparin 80 mg/0.8 mL Syringe 70 MG SUBCUT (06:49)
[2021-08-11] MEDS: aspirin 81 mg Chew Tablet PO (08:32)
[2021-08-11] MEDS: cholecalciferol (vitamin D3) 1,000 unit Tablet 2000 UNIT PO (08:32)
[2021-08-11] MEDS: zinc gluconate 50 mg Tablet PO (08:33)
[2021-08-11] MEDS: lisinopril 10 mg Tablet PO (08:33)
[2021-08-11] MEDS: amlodipine 10 mg Tablet PO (08:33)
[2021-08-11] MEDS: pantoprazole DR 40 mg Tablet PO (08:33)
[2021-08-11] MEDS: ipratropium-albuterol 3 mL Neb INHALATION (09:35)
--- NOTE | 2021-08-11 10:50 | PM.DCS ---
Discharge Providers Date of Admission: 08/08/21 14:06 Date of Discharge: August 11, 2021 Attending Provider at Admission: Elizabeth Lerma MD Attending Provider at Discharge: Kacey Flood MD Diagnoses at Discharge Discharge Diagnosis (1) Right foot pain: Status: Acute (2) Hypertension: Status: Chronic (3) Pulmonary embolism on right: Status: Acute (4) COVID-19 vaccination not done: Status: Acute (5) Pneumonia due to COVID-19 virus: Status: Acute Reason for Visit Reason for Visit: O2 Below 90, having alot of respitory issues Hospital Course Hospital Course This note was written by Dr Lerma:- Conor Cullen is a 76 year old male who presented to the emergency room at his daughter's urging due to increasing difficulty breathing and general malaise.? He tested positive for COVID-19 around July 27.? Symptom onset was shortly before that.? His has also been sick and she unfortunately within the last 24 to 48 hours, presumably from Covid.? He is not vaccinated.? He has not previously had Covid.? He has had headache which was one of his initial symptoms along with sore throat, very dry mouth, runny nose, congestion, difficulty breathing that has been progressively worsening.? Has not really been able to get up much sputum, no blood has been noted.? Denies any GI symptoms.? He has some right foot pain from an encounter with a woodpile a few days ago but denies any other body aches currently.? He has been weaker than usual.? Intermittently he notices loss of taste more so than smell.? On arrival here oxygen saturations were 84% on room air.? He was placed on oxygen that was titrated up to 6 L with saturations around 93-94%.? Rapid Covid PCR has been sent.? We do not have access to prior testing records as it was a home test.? Chest x-ray showed bilateral pneumonitis consistent with Covid 19.? Lymphopenia has been noted.? CTA of the chest showed evidence of right lower lobe PE.? He has been given dexamethasone, Lovenox and started on remdesivir.? He is being admitted for further evaluation and treatment.? Primary risk factors for severe Covid include hypertension and a history of smoking.? He reports to me that he quit smoking many years ago although family indicates that he still smokes sometimes.? Exact amounts or not known.? He has not received any other outpatient focus treatment for Covid. Hosp course:- Patient was admitted for management and evaluation of hypoxia related to COVID-19 symptoms. At the time of admission he was diagnosed with acute pulmonary embolism he was started on therapeutic dose of Lovenox along remdesivir and Decadron. On 08/11 with home O2 evaluation he was requiring 6 L of oxygen. Patient clinically improved. He will be discharged on Eliquis 10 mg twice daily regimen for next 7 days and then 5 mg twice daily regimen, albuterol for shortness of breath and lisinopril for his hypertension Physical Exam Narrative: EXAM NARRATIVE: In good spirits very pleasant and cooperative Nonfocal neuro exam S1, S2 Bilateral breath sounds today I have not noticed rhonchi crackles or stridor Abdomen is soft Nonfocal neuro exam No signs of edema On 4 L at rest and required 6 L on ambulation ? Discharge Data Studies Completed and Pending Completed Studies During Hospitalization Category Date Time Status CT angio chest PE protcl [id number] Stat Cat Scan 08/08/21 11:11 Completed XR chest 1V portable [id number] Stat Exams 08/08/21 11:04 Completed XR foot RT 2V [id number] Routine Exams 08/08/21 15:33 [place] [id number] Routine Ultrasound 08/09/21 10:33 Completed CV. echo limited [id number] Routine Ultrasound 08/09/21 10:33 Completed Pending at discharge Category Date Time Status Blood Culture Stat Lab 08/08/21 15:47 Results Sputum Culture and Gram Stain Stat Lab 08/08/21 11:04 Uncollected Radiology Impressions Chest X-Ray 08/08/21 11:04 IMPRESSION: Bilateral pulmonary opacities unknown chronicity but very likely representing subacute pneumonitis. Chest CTA 08/08/21 11:11 IMPRESSION: 1. Filling defect in the right lower lobe pulmonary arteries compatible with acute pulmonary embolus. 2. Advanced chronic emphysematous changes with chronic appearing interstitial thickening and subpleural fibrosis 3. Superimposed airspace infiltrates in the mid lungs and bilateral lower lobes compatible with pneumonia. Recommend correlation for COVID 19 pneumonia Notified Celestino Dailey DO at 08/08/2021 12:53 PM. Foot X-Ray 08/08/21 15:33 IMPRESSION: 1. Negative for fracture or dislocation. 2. Small calcified plantar calcaneal heel spur. 3. Os trigonum, a normal variant. Laboratory Results WBC 16.0 10^3/uL (4.0-10.0) H 08/11/21 05:19 RBC 4.08 10^6/uL (4.1-5.3) L 08/11/21 05:19 Hgb 12.7 g/dL (11.7-16.6) 08/11/21 05:19 Hct 38.3 % (42.0-52.0) L 08/11/21 05:19 MCV 93.9 fl (80-94) 08/11/21 05:19 MCH 31.1 pg (28.0-34.0) 08/11/21 05:19 MCHC 33.2 g/dL (30.0-36.0) 08/11/21 05:19 RDW 13.4 % (12.1-15.1) 08/11/21 05:19 Plt Count 409 10^3/cmm (130-400) H 08/11/21 05:19 MPV 9.9 fL (7.4-10.4) 08/11/21 05:19 Neut % (Auto) 86.0 % 08/11/21 05:19 Lymph % (Auto) 4.3 % 08/11/21 05:19 Alexander % (Auto) 8.2 % 08/11/21 05:19 Eos % (Auto) 0.0 % 08/11/21 05:19 Baso % (Auto) 0.1 % 08/11/21 05:19 Neut # (Auto) 13.81 10^3/uL (1.8-7.7) H 08/11/21 05:19 Lymph # (Auto) 0.7 10^3/uL (0.8-4.8) L 08/11/21 05:19 Alexander # (Auto) 1.3 10^3/uL (0.2-0.9) H 08/11/21 05:19 Eos # (Auto) 0.0 10^3/uL (0.0-0.8) 08/11/21 05:19 Baso # (Auto) 0.0 10^3/uL (0.0-0.1) 08/11/21 05:19 Nucleated RBC % (auto) 0 % 08/11/21 05:19 Nucleated RBCs # 0.0 /100WBC 08/11/21 05:19 PT 14.80 SECONDS (12.1-14.9) 08/08/21 11:01 INR 1.13 (0.8-1.2) 08/08/21 11:01 APTT 28.9 SECONDS (23.9-36.7) 08/08/21 11:01 Fibrinogen 517 mg/dL (174-498) H 08/08/21 11:01 D-Dimer 8.77 ug/mIFEU (0-0.59) H 08/08/21 11:01 Specimen Type Arterial 08/10/21 04:11 Sample Site Brachial, right 08/10/21 04:11 ABG pH 7.48 (7.35-7.45) H 08/10/21 04:11 ABG pCO2 35.9 mmHg (35-45) 08/10/21 04:11 ABG pO2 56.5 mmHg (80.0-100.0) L 08/10/21 04:11 ABG HCO3 26.5 mmol/L (22-26) H 08/10/21 04:11 ABG O2 Saturation 96.6 08/08/21 11:18 ABG Base Excess 3.1 mmol/L (-2.0-2.0) H 08/10/21 04:11 Clint Test Pos 08/10/21 04:11 A-a O2 Gradient 24.6 mmHg (5-10) H 08/08/21 11:18 Hematocrit 40.9 % (42-52) L 08/10/21 04:11 Hgb O2 Saturation 95.0 % (95-100) 08/08/21 11:18 Carboxyhemoglobin 0.9 %THgb (0.4-20.1) 08/08/21 11:18 Methemoglobin 0.9 % (0.4-1.5) 08/08/21 11:18 Total Hemoglobin 13.3 g/dL (14-18) L 08/08/21 11:18 Sodium 139.0 mmol/L (131-143) 08/08/21 11:18 Potassium 3.4 mmol/L (3.5-5.0) L 08/08/21 11:18 Glucose 119.0 mg/dL (70-115) H 08/08/21 11:18 Ionized Calcium 1.1 mmol/L (1.1-1.4) 08/08/21 11:18 O2 Delivery Device Nc 08/10/21 04:11 O2 Liters/Min 3.0 % 08/10/21 04:11 FiO2 44.0 % 08/08/21 11:18 Coupling Machine Operator ID Buttr 08/10/21 04:11 Sodium 137 mmol/L (136-145) 08/11/21 05:19 Potassium 4.3 mmol/L (3.5-5.1) 08/11/21 05:19 Chloride 104 mmol/L (98-107) 08/11/21 05:19 Carbon Dioxide 21 mmol/L (22-29) L 08/11/21 05:19 Anion Gap 16.3 (5-19) 08/11/21 05:19 BUN 22 mg/dL (8-23) 08/11/21 05:19 Creatinine 0.7 mg/dL (0.7-1.2) 08/11/21 05:19 GFR Calculation Not Reportable 08/11/21 05:19 Glucose 99 mg/dL (65-115) 08/11/21 05:19 Calculated Osmolality 287 mOsm/kg (285-295) 08/11/21 05:19 Lactic Acid 1.2 mmol/L (0.5-2.2) 08/08/21 11:50 Calcium 8.6 mg/dL (8.5-10.5) 08/11/21 05:19 Phosphorus 3.2 mg/dL (2.5-4.5) 08/09/21 05:43 Magnesium 2.4 mg/dL (1.7-2.3) H 08/09/21 05:43 Ferritin 771 ng/mL (30-400) H 08/08/21 11:01 Total Bilirubin 0.2 mg/dL (0.15-1.2) 08/09/21 05:43 AST 19 U/L (0-40) 08/09/21 05:43 ALT 18 U/L (0-41) 08/09/21 05:43 Alkaline Phosphatase 82 IU/L (40-130) 08/09/21 05:43 Creatine Kinase 300 U/L (39-308) 08/08/21 11:01 Troponin T Gen 5 ng/L 57 ng/L (0-15) H 08/08/21 11:01 C-Reactive Protein 91.0 mg/L (0.0-4.9) H 08/09/21 05:43 NT-Pro-B Natriuret Pep 358 pg/mL (0-450) 08/08/21 11:01 Total Protein 5.2 g/dL (6.6-8.7) L 08/09/21 05:43 Albumin 2.4 g/dL (3.5-5.2) L 08/09/21 05:43 Globulin 2.8 g/dL (1.3-4.6) 08/09/21 05:43 Procalcitonin 0.07 ng/mL (0-0.5) 08/10/21 04:50 Coronavirus 229E (PCR) Not detected (NOT DETECT) 08/08/21 11:01 SARS-CoV-2 (PCR) Detected (NOT DETECT) A 08/08/21 11:01 Vitals Last Vital Signs Temp 98.8 F 08/11/21 07:53 Pulse 91 08/11/21 09:38 Resp 20 H 08/11/21 09:38 BP 144/81 08/11/21 07:53 Pulse Ox 80 L 08/11/21 10:03 Discharge Plan Discharge Patient Disposition: Home Condition: Stable Prescriptions: New lisinopril 10 mg Tablet 10 mg PO DAILY Qty: 60 3RF albuterol sulfate 90 mcg/actuation HFA aerosol inhaler 2 inh inhalation Q8H Qty: 8.5 2RF Eliquis DVT-PE Treat 30D Start 5 mg (74 tabs) tablets,dose pack See Rx Instructions .ROUTE .COMPLEX Qty: 74 0RF Rx Instructions: orally per package directions benzonatate 100 mg Capsule 100 mg PO TID PRN (Reason: Cough) Qty: 90 0RF Continued amlodipine 10 mg Tablet 10 mg PO DAILY 0RF aspirin 81 mg Tablet,Chewable 81 mg PO DAILY 0RF Discharge Orders: Discharge Order (Routine); Ordered 08/11/21 Ordered By: Kacey Flood Other Ambulatory Orders: DME: Oxygen (Order) Location: None Selected Ordered By: Kacey Flood Referrals: Arlyn Rubio MD [Referring] - 08/16/21 1:00 pm Discharge Diet: Cardiac Discharge Activity: Increase activity as tolerated Patient Instructions: Opioid Safety Discharge Attestations Time Spent in Discharge Care*: less than 30 min Quality Metrics Clinical Quality Measures [ No reported AMI, CVA or VTE this stay] Coding Level of Care Code Acute g FW IA note Diagnoses Right foot pain M79.671 Hypertension I10 Pulmonary embolism on right I26.99 COVID-19 vaccination not done Z28.9 Pneumonia due to COVID-19 virus U07.1; J12.82
--- NOTE | 2021-08-11 10:54 | PC.SOCIAL ---
Pg 2 IMM Explained to pt Pg 2 IMM. No questions voiced. Provided pt a copy. Initialed, dated, & timed a copy & placed in chart.
[2021-08-11] MEDS: dexamethasone 4 mg/mL INJ 6 MG IVP (15:42)
== END 2021-08-11 16:22 | disposition home or self-care (01) | DRG 177 ==
LOC: ER 12:35 → ER IP 16:30 → MEDSURG 19:51
PROVIDERS: Admitting Provider Hospitalist; Emergency Provider Family Medicine; Visit Provider Internal Medicine
DX: U07.1 COVID-19 (principal); J12.82 Pneumonia due to coronavirus disease 2019; I26.99 Other pulmonary embolism without acute cor pulmonale; F17.210 Nicotine dependence, cigarettes, uncomplicated; M79.671 Pain in right foot; Z63.4 Disappearance and death of family member; Z79.82 Long term (current) use of aspirin; Z28.21 Immunization not carried out because of patient refusal
CPT/HCPCS: 36415; 36600; 71045; 71275; 73620; 80048; 80051; 80053; 82330; 82550; 82728; 82803; 82805; 83605; 83735; 83880; 84100; 84145; 84484; 85025; 85378; 85384; 85610; 85730; 86140; 87040; 87635; 93005; 93308; 93970; 94640; 96365; 96372; 96375; 97161; 97530; 99285; J1100; J1650; Q9967

== ENCOUNTER 2021-08-16 14:15 | Emergency (ER) | payer OTHER, MEDICARE, SELFPAY ==
--- NOTE | 2021-08-16 14:22 | XR_ITS ---
WS: [id number] XR chest 1V portable [id number] REASON FOR EXAM: dyspnea/cough FINDINGS: Compared to the previous examination of 08/08/2021, there has been some resolution of coarse linear and patchy/consolidative opacities in the right lung. Moderate abnormality persists. Consolidative and and linear opacities in the left lower lung also show partial resolution. No new findings are noted. XR/XR chest 1V portable [id number] IMPRESSION: Abnormal chest with some interval improvement as above.
--- NOTE | 2021-08-16 14:43 | ED_ITS ---
HPI - SOB/Dyspnea General: Chief Complaint: Shortness of Breath/Dyspnea Stated Complaint: RE-EVAL COVID/ PE Time Seen by Provider: 08/16/21 14:19 History of Present Illness: HPI Narrative: 76-year-old male returns to the emergency room with complaint of shortness of breath. Patient was at his doctor's office and they felt he was significantly hypoxic. Patient is recovering from COVID in a post Covid phase he was found to have a pulmonary emboli which she was treated as an outpatient with [facility]. He has been on oxygen because of his PE and post Covid status at 2 to 3 L/min. EMS reports that when they arrived office personnel reported he was on 10 L/min via nasal cannula they have him on 3 L/min he is maintaining sats in the mid 90s. Patient denies any chest pain he denies feeling particularly short of breath. He still has a mild cough that has been improving and is nonproductive. MD elicited complaint: cough Onset (ago): day(s) Context: recent illness Timing: constant Severity: mild Exacerbating factors: nothing Relieving factors: nothing Associated symptoms: Deny abdominal pain, chest congestion, chest pain, cough, diaphoresis, dizziness, extremity pain, fever(s), hemoptysis, lightheadedness, myalgias, nausea, orthopnea, palpitations, paresthesias, polydipsia, polyuria, rash, sense of impending doom, syncope or vomiting Treatment prior to arrival: none Review of Systems Const: Denies: fever(s) or diaphoresis ENMT: Denies: throat pain, ear or mastoid pain, nasal discharge or nasal congestion Card: Denies: chest pain, palpitations, lightheadedness, syncope or orthopnea Resp: Denies: hemoptysis or chest congestion GI: Denies: abdominal pain, nausea or vomiting : Denies: flank pain, dysuria, urinary frequency or urinary urgency Musc: Denies: extremity pain Skin/Breast: Denies: rash or pruritus Neuro: Denies: dizziness Endo: Denies: polyuria or polydipsia PFS ED PFSH: Medical History Former smoker Hypertension Surgical History 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 Family History Denies family history of CAD (coronary artery disease) Social History Smoking and tobacco status: former smoker Alcohol intake: never Lives independently: Yes Marital status: / Marital status details: 08/07/2021 service: Yes Physical Exam Const: GENERAL APPEARANCE: cooperative and comfortable ORIENTATI ON/CONSCIOUSNESS: Yes awake, Yes oriented to person, Yes oriented to place and Yes oriented to time HENMT: COMMON NORMALS: normocephalic, atraumatic and hearing grossly normal bilaterally HEAD & SCALP: normocephalic and atraumatic Neck/C-Spine: COMMON NORMALS: no JVD Resp: COMMON NORMALS: normal respiratory effort, No retractions, No use of accessory muscles and clear to auscultation bilaterally AUSCULTATION: clear to auscultation bilaterally Cardio: COMMON NORMALS: no JVD, regular rate, regular rhythm and No murmurs present (Cardio) RATE: regular rate RHYTHM: regular rhythm GI: COMMON NORMALS: Soft to palpation and No hepatosplenomegaly present AUSCULTATION: Yes normoactive bowel sounds PALPATION: Yes Soft to palpation, No Tenderness to palpation present (GI), No Guarding due to palpation present (GI) and Yes No hepatosplenomegaly present Extremity: COMMON NORMALS: normal to inspection, capillary refill normal, no clubbing, cyanosis or edema, no calf tenderness and no pedal edema Neuro: SENSORIUM/ORIENTATION: Yes oriented to person, Yes oriented to place and Yes oriented to time Skin: COMMON NORMALS: no rashes or lesions noted GENERAL SKIN EXAM: no rashes or lesions noted Course Vital Signs: Vital signs: Vital Signs Temperature 97.8 F 08/16/21 14:45 Pulse Rate 66 08/16/21 17:20 Respiratory Rate 17 08/16/21 17:20 Blood Pressure 115/69 08/16/21 17:20 Pulse Oximetry 94 08/16/21 17:20 MDM - SOB/Dyspnea Medical Decision Making Patient arrived here he is on 3 L/min which is his baseline he is at 95% they reported he was in the 70s at 6 L/min. Overall he is looking good patient says he feels fine labs and imaging reviewed at this point is no indication for hospitalization. We will go and discharge him home continues to 3 L/min. Patient has a known pulmonary emboli and he is currently on anticoagulation he has not missed any doses he should continue this for now. Medical Records I reviewed the patient's medical records. Lab Data I reviewed the patient's lab results. : 08/16/21 14:54 08/16/21 14:54 Labs/Radiology: Radiology Impressions Chest X-Ray 08/16/21 14:22 IMPRESSION: Abnormal chest with some interval improvement as above. Laboratory Results WBC 16.4 10^3/uL (4.0-10.0) H 08/16/21 14:54 RBC 4.58 10^6/uL (4.1-5.3) 08/16/21 14:54 Hgb 14.2 g/dL (11.7-16.6) 08/16/21 14:54 Hct 43.8 % (42.0-52.0) 08/16/21 14:54 MCV 95.6 fl (80-94) H 08/16/21 14:54 MCH 31.0 pg (28.0-34.0) 08/16/21 14:54 MCHC 32.4 g/dL (30.0-36.0) 08/16/21 14:54 RDW 13.8 % (12.1-15.1) 08/16/21 14:54 Plt Count 566 10^3/cmm (130-400) H 08/16/21 14:54 MPV 9.0 fL (7.4-10.4) 08/16/21 14:54 Neut % (Auto) 83.4 % 08/16/21 14:54 Lymph % (Auto) 5.8 % 08/16/21 14:54 [place] % (Auto) 6.7 % 08/16/21 14:54 Eos % (Auto) 0.3 % 08/16/21 14:54 Baso % (Auto) 0.5 % 08/16/21 14:54 Neut # (Auto) 13.63 10^3/uL (1.8-7.7) H 08/16/21 14:54 Lymph # (Auto) 1.0 10^3/uL (0.8-4.8) 08/16/21 14:54 [place] # (Auto) 1.1 10^3/uL (0.2-0.9) H 08/16/21 14:54 Eos # (Auto) 0.1 10^3/uL (0.0-0.8) 08/16/21 14:54 Baso # (Auto) 0.1 10^3/uL (0.0-0.1) 08/16/21 14:54 Nucleated RBC % (auto) 0 % 08/16/21 14:54 Nucleated RBCs # 0.0 /100WBC 08/16/21 14:54 Specimen Type Arterial 08/16/21 15: Sample Site Radial, left 08/16/21 15:22 ABG pH 7.48 (7.35-7.45) H 08/16/21 15: ABG pCO2 41.8 mmHg (35-45) 08/16/21 15: ABG pO2 65.5 mmHg (80.0-100.0) L 08/16/21 15:22 ABG HCO3 30.9 mmol/L (22-26) H 08/16/21 15:22 ABG O2 Saturation 94.5 08/16/21 15:22 ABG Base Excess 6.6 mmol/L (-2.0-2.0) H 08/16/21 15:22 Clint Test Pos 08/16/21 15:22 A-a O2 Gradient 14.3 mmHg (5-10) H 08/16/21 15:22 Hematocrit 43.7 % (42-52) 08/16/21 15:22 Hgb O2 Saturation 93.6 % (95-100) L 08/16/21 15:22 Carboxyhemoglobin 0.6 %THgb (0.4-20.1) 08/16/21 15:22 Methemoglobin 0.4 % (0.4-1.5) 08/16/21 15:22 Total Hemoglobin 14.2 g/dL (14-18) 08/16/21 15:22 Sodium 138.0 mmol/L (131-143) 08/16/21 15:22 Potassium 4.6 mmol/L (3.5-5.0) 08/16/21 15:22 Glucose 98.0 mg/dL (70-115) 08/16/21 15:22 O2 Delivery Device Nc 08/16/21 15:22 O2 Liters/Min 3.0 % 08/16/21 15:22 FiO2 32.0 % 08/16/21 15:22 Senior Director [employer] ID Anselmo 08/16/21 15:22 Sodium 140 mmol/L (136-145) 08/16/21 14:54 Potassium 5.1 mmol/L (3.5-5.1) 08/16/21 14:54 Chloride 103 mmol/L (98-107) 08/16/21 14:54 Carbon Dioxide 25 mmol/L (22-29) 08/16/21 14:54 Anion Gap 17.1 (5-19) 08/16/21 14:54 BUN 33 mg/dL (8-23) H 08/16/21 14:54 Creatinine 0.7 mg/dL (0.7-1.2) 08/16/21 14:54 GFR Calculation Not Reportable 08/16/21 14:54 Glucose 100 mg/dL (65-115) 08/16/21 14:54 Calculated Osmolality 297 mOsm/kg (285-295) H 08/16/21 14:54 Calcium 9.2 mg/dL (8.5-10.5) 08/16/21 14:54 Total Bilirubin 0.2 mg/dL (0.15-1.2) 08/16/21 14:54 AST 28 U/L (0-40) 08/16/21 14:54 ALT 31 U/L (0-41) 08/16/21 14:54 Alkaline Phosphatase 108 IU/L (40-130) 08/16/21 14:54 Total Protein 6.6 g/dL (6.6-8.7) 08/16/21 14:54 Albumin 3.0 g/dL (3.5-5.2) L 08/16/21 14:54 Globulin 3.6 g/dL (1.3-4.6) 08/16/21 14:54 Discharge Plan Discharge Patient Disposition: Home Clinical Impression: Pulmonary embolism on right, COVID-19 Condition: Stable Prescriptions: No Action amlodipine 10 mg Tablet 10 mg PO DAILY 0RF aspirin 81 mg Tablet,Chewable 81 mg PO DAILY 0RF lisinopril 10 mg Tablet 10 mg PO DAILY Qty: 60 3RF albuterol sulfate 90 mcg/actuation HFA aerosol inhaler 2 inh inhalation Q8H Qty: 8.5 2RF Eliquis DVT-PE Treat 30D Start 5 mg (74 tabs) tablets,dose pack See Rx Instructions .ROUTE .COMPLEX Qty: 74 0RF Rx Instructions: orally per package directions benzonatate 100 mg Capsule 100 mg PO TID PRN (Reason: Cough) Qty: 90 0RF Discharge Orders: Discharge ED (Routine); Ordered 08/16/21 Ordered By: Celestino Dailey Patient Instructions: Opioid Safety Activity Restrictions/Additional Instructions: 10 using oxygen follow-up with your doctor as previously scheduled Coding Level of Care Code ED Macadam Raker for Chg Fwd Exam Comprehensive
[2021-08-16 14:45] VITALS: BP 124/70; PULSE 75; RESP 18; TEMP 36.6; O2SAT 89; BMI 20.7
[2021-08-16 14:59] LABS: Basophils # 0.1 10^3/uL (0.0-0.1); Basophils % 0.5 %; Eosinophils # 0.1 10^3/uL (0.0-0.8); Eosinophils % 0.3 %; Hematocrit 43.8 % (42.0-52.0); Hemoglobin 14.2 g/dL (11.7-16.6); Lymphocytes % 5.8 %; Mean Corpuscular HGB Conc 32.4 g/dL (30.0-36.0); Mean Corpuscular Volume 95.6 fl (80-94); Monocytes # 1.1 10^3/uL (0.2-0.9); Monocytes % 6.7 %; Neutrophils # 13.63 10^3/uL (1.8-7.7); Neutrophils % 83.4 %; Nucleated Red Blood Cells % 0 %; Platelet Count 566 10^3/cmm (130-400); Red Blood Count 4.58 10^6/uL (4.1-5.3); Red Cell Distribution Width 13.8 % (12.1-15.1); White Blood Count 16.4 10^3/uL (4.0-10.0)
[2021-08-16 15:00] VITALS: BP 113/71; PULSE 62; RESP 18; O2SAT 97
[2021-08-16 15:27] LABS: Alanine Aminotransferase 31 U/L (0-41); Alkaline Phosphatase 108 IU/L (40-130); Anion Gap 17.1 (5-19); Aspartate Amino Transferase 28 U/L (0-40); Blood Urea Nitrogen 33 mg/dL (8-23); Calcium 9.2 mg/dL (8.5-10.5); Carbon Dioxide 25 mmol/L (22-29); Chloride 103 mmol/L (98-107); Globulin 3.6 g/dL (1.3-4.6); Glucose 100 mg/dL (65-115); Osmolality Calculated 297 mOsm/kg (285-295); Potassium 5.1 mmol/L (3.5-5.1); Sodium 140 mmol/L (136-145); Total Bilirubin 0.2 mg/dL (0.15-1.2); Total Protein 6.6 g/dL (6.6-8.7)
[2021-08-16 15:35] LABS: ABG PCO2 41.8 mmHg (35-45); ABG PH Result 7.48 (7.35-7.45); Alveolar-Arterial Oxygen Gradi 14.3 mmHg (5-10); Arterial Blood Gas Hematocrit 43.7 % (42-52); Base Excess ABG 6.6 mmol/L (-2.0-2.0); Blood Gas Allen Test Pos; Blood Gas Operator Identificat MONRO; Blood Gas Sample Site Radial, left; Blood Gas Sample Type Arterial; Carboxyhemoglobin 0.6 %THgb (0.4-20.1); HCO3 ABG 30.9 mmol/L (22-26); HGB O2 Sat 93.6 % (95-100); Methemoglobin 0.4 % (0.4-1.5); Oxygen Device NC; Oxygen Saturation ABG 94.5; PO2 ABG 65.5 mmHg (80.0-100.0); Potassium Level - ABG 4.6 mmol/L (3.5-5.0); Total Hemoglobin 14.2 g/dL (14-18)
[2021-08-16 16:06] VITALS: BP 113/71; PULSE 59; RESP 18; O2SAT 97
[2021-08-16 17:20] VITALS: BP 115/69; PULSE 66; RESP 17; O2SAT 94
== END 2021-08-16 17:21 | disposition home or self-care (01) ==
PROVIDERS: Emergency Provider Family Medicine
DX: U07.1 COVID-19 (principal); I26.99 Other pulmonary embolism without acute cor pulmonale; Z79.01 Long term (current) use of anticoagulants; Z79.82 Long term (current) use of aspirin; I10 Essential (primary) hypertension; Z87.891 Personal history of nicotine dependence
CPT/HCPCS: 36600; 71045; 80051; 80053; 82330; 82805; 85025; 99283

== ENCOUNTER → 2023-09-25 12:53 | Outpatient (BNVA) | payer OTHER, SELFPAY | PROVIDERS: Referring Provider Family Medicine; Visit Provider Dermatology | DX: D48.5 Neoplasm of uncertain behavior of skin (principal); L57.0 Actinic keratosis; L82.1 Other seborrheic keratosis; L73.8 Other specified follicular disorders | CPT/HCPCS: 11102; 17000; 99203 ==

== ENCOUNTER → 2023-11-04 13:27 | Outpatient (BNVA) | payer OTHER, SELFPAY | PROVIDERS: Visit Provider Podiatrist Foot & Ankle Surgery | DX: B35.1 Tinea unguium (principal) | CPT/HCPCS: 99203 ==

== ENCOUNTER → 2023-12-23 09:51 | Outpatient (BNVA) | payer OTHER, SELFPAY | PROVIDERS: Visit Provider Dermatology | DX: L57.0 Actinic keratosis (principal); B35.1 Tinea unguium; L82.1 Other seborrheic keratosis; L57.8 Other skin changes due to chronic exposure to nonionizing radiation; L72.0 Epidermal cyst; L81.4 Other melanin hyperpigmentation; Z85.828 Personal history of other malignant neoplasm of skin; Z85.820 Personal history of malignant melanoma of skin | CPT/HCPCS: 17000; 99213 ==

== ENCOUNTER → 2024-03-27 08:54 | Outpatient (BNVA) | payer OTHER, SELFPAY | PROVIDERS: Visit Provider Nurse Practitioner Family | DX: D48.5 Neoplasm of uncertain behavior of skin (principal); L57.0 Actinic keratosis; L72.0 Epidermal cyst; L57.8 Other skin changes due to chronic exposure to nonionizing radiation; B35.1 Tinea unguium; M27.0 Developmental disorders of jaws; Z85.820 Personal history of malignant melanoma of skin; Z85.828 Personal history of other malignant neoplasm of skin | CPT/HCPCS: 11102; 17000; 99213 ==

== ENCOUNTER → 2024-09-28 08:06 | Outpatient (BNVA) | payer OTHER, SELFPAY | PROVIDERS: Visit Provider Nurse Practitioner Family | DX: L57.8 Other skin changes due to chronic exposure to nonionizing radiation (principal); X32.XXXA Exposure to sunlight, initial encounter; B35.1 Tinea unguium; M27.0 Developmental disorders of jaws; L82.1 Other seborrheic keratosis; L81.4 Other melanin hyperpigmentation; Z85.820 Personal history of malignant melanoma of skin; Z08 Encounter for follow-up examination after completed treatment for malignant neoplasm; Z85.828 Personal history of other malignant neoplasm of skin; L57.0 Actinic keratosis | CPT/HCPCS: 17000; 99213 ==

== ENCOUNTER 2024-12-30 10:27 | Oncology outpatient (recurring) (ONCR) | payer OTHER, SELFPAY ==
[2024-12-29 17:15] LABS: Basophils # 0.1 10^3/uL (0.0-0.1); Basophils % 0.8 %; Eosinophils # 0.1 10^3/uL (0.0-0.8); Eosinophils % 1.8 %; Lymphocytes % 14.5 %; Mean Corpuscular HGB Conc 32.4 g/dL (30-55); Mean Corpuscular Hemoglobin 30.8 pg (27-33); Mean Corpuscular Volume 94.9 fl (82-101); Mean Platelet Volume 9.1 fL (7.4-10.4); Monocytes # 0.5 10^3/uL (0.2-0.9); Monocytes % 7.3 %; Neutrophils # 5.38 10^3/uL (1.8-7.7); Neutrophils % 75.3 %; Nucleated Red Blood Cells % 0 %; Platelet Count 266 10^3/cmm (157-399); Red Blood Count 4.74 10^6/uL (3.85-5.65); Red Cell Distribution Width 14.1 % (12.1-15.1); White Blood Count 7.15 10^3/uL (3.29-11.43)
[2024-12-29 17:48] LABS: Alanine Aminotransferase 14 U/L (0-41); Albumin Level 4.1 g/dL (3.5-5.2); Alkaline Phosphatase 94 U/L (40-130); Anion Gap 15.4 (5-19); Aspartate Amino Transferase 17 U/L (0-40); Blood Urea Nitrogen 19 mg/dL (8-23); Carbon Dioxide 26 mmol/L (22-29); Chloride 105 mmol/L (98-107); Glucose 97 mg/dL (65-115); Lactate Dehydrogenase 178 U/L (135-225); Osmolality Calculated 296 mOsm/kg (285-295); Potassium 4.4 mmol/L (3.5-5.1); Sodium 142 mmol/L (136-145); Total Bilirubin 0.4 mg/dL (0.15-1.2); Total Protein 7.1 g/dL (6.6-8.7); Uric Acid 4.4 mg/dL (3.4-7.0)
[2024-12-31 11:52] LABS: Leukemia Profile (BBPL) See Report
== END 2025-01-04 23:59 | disposition home or self-care (01) ==
PROVIDERS: Internal Medicine; Visit Provider Family Medicine
DX: D72.829 Elevated white blood cell count, unspecified (principal); R33.8 Other retention of urine; Z87.891 Personal history of nicotine dependence
CPT/HCPCS: 80053; 83615; 84550; 85025; 88184; 88185; 99205

== ENCOUNTER → 2025-04-29 14:22 | Outpatient (BNVA) | payer OTHER, SELFPAY | PROVIDERS: Visit Provider Nurse Practitioner Family | DX: L72.0 Epidermal cyst (principal); L73.8 Other specified follicular disorders; L57.8 Other skin changes due to chronic exposure to nonionizing radiation; X32.XXXA Exposure to sunlight, initial encounter; L81.4 Other melanin hyperpigmentation; Z85.820 Personal history of malignant melanoma of skin; Z08 Encounter for follow-up examination after completed treatment for malignant neoplasm; Z85.828 Personal history of other malignant neoplasm of skin; L82.0 Inflamed seborrheic keratosis; R58 Hemorrhage, not elsewhere classified; R20.8 Other disturbances of skin sensation; Z78.9 Other specified health status; L57.0 Actinic keratosis | CPT/HCPCS: 17000; 17110; 99213 ==